=== PATIENT | male | born 1995 | race Caucasian/White ===

== ENCOUNTER 2016-06-22 14:01 | Day surgery (SDC) | payer MEDICAID ==
[2016-06-22] MEDS ORDERED: LIDOCAINE 1% 30 ML SDV ONE (14:52)
[2016-06-22] MEDS ORDERED: fentaNYL 100 MCG/2 ML INJ ONE (14:53)
[2016-06-22] MEDS ORDERED: BUPIVACAINE 0.5% 30 ML SDV ONE (14:53)
[2016-06-22] MEDS ORDERED: MIDAZOLAM 2 MG/2 ML VIAL ONE (14:53)
[2016-06-22] MEDS ORDERED: LIDOCAINE 1% 30 ML SDV IF ONE (15:00)
[2016-06-22] MEDS ORDERED: LIDO/EPI 1% **for epidural** 30 ML SDV ONE (15:28)
--- NOTE | 2016-06-23 08:34 | EPPROC ---
Electrophysiology Procedure Note: Procedure: LINQ removal Indication: No symptoms recorded with LINQ and pt requested removal of LINQ Procedure: parts prepared and draped. LA given. Incision placed. Subcut tissue dissected. LINQ removed Veena placed. Dry sterile dressing placed. Conclusion: Successful LINQ explant
== END 2016-06-22 16:00 | disposition home or self-care (01) ==
LOC: FCATH 14:01
PROVIDERS: ATTEND Internal Medicine Cardiovascular Disease
PROC: 0JPT02Z Removal of Monitoring Device from Trunk Subcutaneous Tissue and Fascia, Open Approach (ICD-10-PCS; principal; 2016-06-22)
DX: Z45.09 Encounter for adjustment and management of other cardiac device (principal); R00.2 Palpitations
CPT/HCPCS: J2250; J3010